=== PATIENT | female | born 1980 | race African-American/Black ===

== ENCOUNTER 2016-12-27 12:58 | Emergency (ER) | payer OTHER ==
[~2016-12-27] VITALS: Ht 160 cm; Wt 127.0 kg
[~2016-12-27 12:58] MED LIST: DICL50TA9 PO; FLUO10CA26 PO; NORT10CA PO; [UNRECOGNIZED DRUG - REMARK]
[2016-12-27 13:01] VITALS: BP 145/71
[2016-12-27 13:51] LABS: BASOPHILS # (AUTO) 0.2 /CMM (0.0-0.2); BASOPHILS % (AUTO) 1.7 % (0.0-2.0); DIFF TOTAL % 100 %; EOSINOPHILS # (AUTO) 0.1 /CMM (0.0-0.7); HEMATOCRIT 34 % (33-45); HEMOGLOBIN 10.8 g/dL (11.5-14.8); LYMPHOCYTES # (AUTO) 1.5 /CMM (0.8-4.8); LYMPHOCYTES % (AUTO) 16.8 % (20.0-44.0); MEAN CORPUSCULAR HEMOGLOBIN 24 PG (26.0-33.0); MEAN CORPUSCULAR HGB CONC 32 g/dl (31.0-36.0); MEAN CORPUSCULAR VOLUME 75 fL (82-100); MONOCYTES # (AUTO) 0.4 /CMM (0.1-1.30); MONOCYTES % (AUTO) 3.8 % (2.0-12.0); NEUTROPHILS % (AUTO) 76.7 % (43.0-81.0); PLATELET COUNT (AUTO) 251 /CMM (150-450); RED BLOOD CELL COUNT(AUTO) 4.55 MIL/uL (4.0-5.2); WHITE BLOOD COUNT (AUTO) 9.2 K/uL (4.3-11.0)
[2016-12-27 14:05] LABS: PREGNANCY TEST URINE QUAL NEGATIVE (NEGATIVE)
[2016-12-27 14:09] LABS: ALBUMIN 3.5 g/dL (3.4-5.0); BILIRUBIN,DIRECT 0.1 mg/dL (0.0-0.2); BILIRUBIN,TOTAL 0.4 mg/dL (0.2-1.0); CALCIUM, SERUM 8.6 mg/dL (8.5-10.1); CREATININE 0.9 mg/dL (0.6-1.3); INDIRECT BILIRUBIN 0.3 mg/dL (0.0-1.1); POTASSIUM 3.3 mmol/L (3.5-5.1); TOTAL PROTEIN, SERUM 8.4 g/dL (6.4-8.2)
[2016-12-27 14:10] LABS: KETONES,URINE NEGATIVE (NEGATIVE); LEUKOCYTE ESTERASE ,URINE NEGATIVE (NEGATIVE)
[2016-12-27 14:11] LABS: ADD UA MICROSCOPIC YES
[2016-12-27 14:15] LABS: RBC,URINE 0-2 /HPF (0-2); WBC,URINE 0-2 /HPF (0-3)
[2016-12-27 14:16] LABS: ADD URINE CULTURE NO
[2016-12-27] MEDS ORDERED: POTASSIUM CHLORIDE 20 MEQ TAB.PRT.SR PO ONE ×2 (14:52→15:00)
== END 2016-12-27 14:57 | disposition home or self-care (01) ==
LOC: ER 13:00
DX: R31.9 Hematuria, unspecified (principal); I10 Essential (primary) hypertension; F10.20 Alcohol dependence, uncomplicated
CPT/HCPCS: 36415; 80048-TC; 80076-TC; 81000-TC; 83690-TC; 84703-TC; 85025-TC; 87086-TC; A4606; Z7610

== ENCOUNTER 2017-04-09 08:37 | Emergency (ER) | payer OTHER ==
[~2017-04-09] VITALS: Ht 162.6 cm; Wt 79.4 kg
[2017-04-09 08:37] VITALS: BP 168/105
--- NOTE | 2017-04-09 08:40 | NUR ---
Yajaira mcnulty in ED - 04/09/17 at 0841 by BAUTISTA DONNELL CINTRON AT BEDSIDE FOR EVAL
[2017-04-09] MEDS ORDERED: ONDANSETRON 4 MG TAB.RAPDIS ONE (08:52)
[2017-04-09] MEDS ORDERED: ONDANSETRON 4 MG TAB.RAPDIS SL ONE (09:00)
== END 2017-04-09 08:58 | disposition home or self-care (01) ==
LOC: ER 08:39
DX: J06.9 Acute upper respiratory infection, unspecified (principal); J04.0 Acute laryngitis
CPT/HCPCS: 99283; A4606; Q0162; Z7610

== ENCOUNTER 2017-07-28 18:27 | Emergency (ER) | payer OTHER ==
[~2017-07-28] VITALS: Ht 160 cm; Wt 117.9 kg
--- NOTE | 2017-07-28 18:38 | NUR ---
PT AMBULATORY TO ER BED 10. C/O DIFFUSE ABDOMINAL PAIN W/ NAUSEA SINCE YESTERDAY. 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 ETOH SMELL. GOWNED AND PLACED ON MONITOR. AWAITING MD CEBALLOS.
--- NOTE | 2017-07-28 18:57 | NUR ---
DOROTHY INCIDENT RESPONSE ANALYST AT BEDSIDE FOR EVAL.
[2017-07-28] MEDS ORDERED: IV NS 0.9% 1,000 ML BAG IV ONE (19:00)
[2017-07-28] MEDS ORDERED: ONDANSETRON HCL/PF 4 MG/2 ML VIAL IVP ONE (19:00)
[2017-07-28 19:12] LABS: BASOPHILS % (AUTO) 0.6 % (0.0-2.0); EOSINOPHILS # (AUTO) 0.1 /CMM (0.0-0.7); EOSINOPHILS % (AUTO) 1.2 % (0.0-6.0); HEMATOCRIT 36 % (33-45); HEMOGLOBIN 11.9 g/dL (11.5-14.8); LYMPHOCYTES # (AUTO) 1.4 /CMM (0.8-4.8); LYMPHOCYTES % (AUTO) 26.8 % (20.0-44.0); MEAN CORPUSCULAR HEMOGLOBIN 26 PG (26.0-33.0); MEAN CORPUSCULAR HGB CONC 33 g/dl (31.0-36.0); MEAN CORPUSCULAR VOLUME 80 fL (82-100); MONOCYTES # (AUTO) 0.2 /CMM (0.1-1.30); MONOCYTES % (AUTO) 4.7 % (2.0-12.0); NEUTROPHILS # (AUTO) 3.6 /CMM (1.8-8.9); NEUTROPHILS % (AUTO) 66.7 % (43.0-81.0); PLATELET COUNT (AUTO) 185 /CMM (150-450); RDW COEFFICIENT OF VARIATION 17.1 (11.5-15.0); RED BLOOD CELL COUNT(AUTO) 4.53 MIL/uL (4.0-5.2); WHITE BLOOD COUNT (AUTO) 5.3 K/uL (4.3-11.0)
[2017-07-28] MEDS ORDERED: ONDANSETRON HCL/PF 4 MG/2 ML VIAL ONE ×2 (19:13→20:47)
[2017-07-28] MEDS ORDERED: QUET25TA PO (19:20)
[2017-07-28] MEDS ORDERED: LORA1TAB82 PO (19:20)
[2017-07-28] MEDS ORDERED: LOSA100T15 PO (19:20)
[2017-07-28] MEDS ORDERED: FLUV100T3 PO (19:20)
[2017-07-28 19:23] LABS: CALCIUM, SERUM 7.8 mg/dL (8.5-10.1); CREATININE 0.9 mg/dL (0.6-1.3); POTASSIUM 3.3 mmol/L (3.5-5.1)
[2017-07-28 19:25] LABS: INR 1.04 (0.87-1.13); PROTHROMBIN TIME 10.8 SECS (9.5-12.7)
[2017-07-28 19:29] LABS: ALBUMIN 3.4 g/dL (3.4-5.0); BILIRUBIN,DIRECT 0.2 mg/dL (0.0-0.2); BILIRUBIN,TOTAL 0.5 mg/dL (0.2-1.0); TOTAL PROTEIN, SERUM 8.1 g/dL (6.4-8.2)
[2017-07-28 19:32] LABS: APPEARANCE,URINE Clear (CLEAR); BILIRUBIN,URINE Negative (NEGATIVE); BLOOD, URINE Trace-lysed Ery/uL (NEGATIVE); COLOR,URINE Yellow (YELLOW); KETONES,URINE Negative (NEGATIVE); LEUKOCYTE ESTERASE ,URINE Negative (NEGATIVE); NITRITE, URINE Negative (NEGATIVE); PH,URINE 6.5 (5.0-8.0); PROTEIN,URINE 30 mg/dl (NEGATIVE); UGLUCOSE Negative (NEGATIVE); UROBILINOGEN,URINE 0.2 EU/dL (0.2)
[2017-07-28 19:34] LABS: PREGNANCY TEST URINE QUAL NEGATIVE (NEGATIVE)
[2017-07-28] MEDS ORDERED: IOHEXOL-300 100 ML VIAL IV ONE (19:40)
[2017-07-28] MEDS ORDERED: CT SWABBABLE VALVE TRANS SET 1 EA INFUS.SET MC ONE (19:40)
[2017-07-28] MEDS ORDERED: IV NS 0.9% 250 ML IV ONE (19:40)
[2017-07-28 19:49] LABS: RBC,URINE 2-3/HPF /HPF (0-2)
[2017-07-28 19:50] LABS: BACTERIA,URINE Few /HPF (None Seen); MUCUS,URINE Few /LPF (None Seen); SQUAMOUS EPITHELIAL CELL,UR Many /HPF (None Seen); URINE AMORPHOUS URATE Few /HPF (None Seen); WBC,URINE 0-2 /HPF (0-3)
[2017-07-28] MEDS ORDERED: POTASSIUM CHLORIDE 20 MEQ TAB.PRT.SR PO ONE ×2 (20:42→21:00)
[2017-07-28] MEDS ORDERED: ONDANSETRON 4 MG TAB.RAPDIS SL ONE (21:00)
[2017-07-28] MEDS ORDERED: ONDANSETRON HCL/PF - ER 4 MG/2 ML VIAL IV ONE (21:00)
--- NOTE | 2017-07-28 21:04 | NUR ---
Patient discharged to home in stable condition. Written and verbal after care instructions given. Patient verbalizes understanding of instruction.IV removed. Catheter intact and site benign. Pressure and 4x4 applied to site. No bleeding noted.
[2017-07-28 21:05] VITALS: BP 162/99
== END 2017-07-28 21:06 | disposition home or self-care (01) ==
LOC: ER 18:29
DX: K29.20 Alcoholic gastritis without bleeding (principal); E87.6 Hypokalemia; G89.4 Chronic pain syndrome; I10 Essential (primary) hypertension; M06.9 Rheumatoid arthritis, unspecified; M32.9 Systemic lupus erythematosus, unspecified; M79.7 Fibromyalgia; Z98.84 Bariatric surgery status
CPT/HCPCS: 36415; 74160; 80048; 80076; 81001; 83690; 84703; 85025; 85730; 96374; 96376; 99285; A4606; J2405 ×3; J7030; J7050; Q9967; 81000-TC; Z7610

== ENCOUNTER 2017-12-15 07:12 | Emergency (ER) | payer OTHER ==
[~2017-12-15] VITALS: Ht 177.8 cm; Wt 113.4 kg
[~2017-12-15 07:12] MED LIST changes: -DICL50TA9 PO; -FLUO10CA26 PO; +FLUV100T3 PO; +LORA-259 PO; +LOSA100T15 PO; -NORT10CA PO; +QUET25TA PO; -[UNRECOGNIZED DRUG - REMARK]
--- NOTE | 2017-12-15 07:12 | NUR ---
[id number] [facility], STAFF CALLED 911. NAD. RR EVEN AND UNLABORED. SKIN IS WARM AND NON DIAPHORETIC. PENDING ER MD EVALUATION
[2017-12-15] MEDS ORDERED: HALOPERIDOL LACTATE INJ 5 MG/ML VIAL ONE (07:37)
[2017-12-15] MEDS ORDERED: HALOPERIDOL LACTATE INJ 5 MG/ML VIAL IM ONE (08:00)
--- NOTE | 2017-12-15 10:21 | NUR ---
Patient is resting comfortably in bed with eyes closed. Easily aroused. VSS
[2017-12-15 12:25] VITALS: BP 127/80
--- NOTE | 2017-12-15 12:26 | NUR ---
Patient discharged to home in stable condition. Written and verbal after care instructions given. Patient verbalizes understanding of instruction.
== END 2017-12-15 12:26 | disposition home or self-care (01) ==
LOC: ER 07:13
DX: F10.129 Alcohol abuse with intoxication, unspecified (principal); G89.29 Other chronic pain; I10 Essential (primary) hypertension; M32.9 Systemic lupus erythematosus, unspecified; M79.7 Fibromyalgia; Z98.84 Bariatric surgery status
CPT/HCPCS: 96372; 99283; A4606; J1630; Z7610